=== PATIENT | female | born 1980 | race Caucasian/White ===

== ENCOUNTER 2019-09-03 09:24 | Emergency (ER) | payer OTHER ==
[~2019-09-03] VITALS: Ht 157.5 cm; Wt 88.0 kg
[2019-09-03] MEDS ORDERED: IV NORMAL SALINE 1,000ML 1,000 ML IV ONE ×2 (09:45)
[2019-09-03 09:47] VITALS: BP 154/105
--- NOTE | 2019-09-03 09:47 | PHYS DOC ---
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 She has had nausea and belching no vomiting today she was able to keep some liquids down but she just still feeling abdominal churning no sharp pain or localizing tenderness she tells me. She is worried about H. pylori or an ulcer or some other issue. She takes metformin for diabetes as well as occasional antianxiety medication as well no allergies to any medications Review of Systems Review of Systems Constitutional: Denies fever or chills [] Eyes: Denies change in visual acuity, redness, or eye pain [] HENT: Denies nasal congestion or sore throat [] Respiratory: Denies cough or shortness of breath [] Cardiovascular: No additional information not addressed in HPI [] GI: Denies abdominal pain, nausea, vomiting, bloody stools or diarrhea [] : Denies dysuria or hematuria [] Musculoskeletal: Denies back pain or joint pain [] Integument: Denies rash or skin lesions [] Neurologic: Denies headache, focal weakness or sensory changes [] Endocrine: Denies polyuria or polydipsia [] All other systems were reviewed and found to be within normal limits, except as documented in this note. Physical Exam Physical Exam Constitutional: Well developed, well nourished, no acute distress, non-toxic appearance. [] HENT: Normocephalic, atraumatic, bilateral external ears normal, oropharynx dry no oral exudates, nose normal. [] Eyes: PERRLA, EOMI, conjunctiva normal, no discharge. [] Neck: Normal range of motion, no tenderness, supple, no stridor. [] Cardiovascular: Tachycardic no murmur noted Lungs & Thorax: Bilateral breath sounds clear to auscultation [] Abdomen:, soft, no tenderness, no masses, no pulsatile masses. [] Skin: Warm, dry, no erythema, no rash. [] Back: No tenderness, no CVA tenderness. [] Extremities: No tenderness, no cyanosis, no clubbing, ROM intact, no edema. [] Neurologic: Alert and oriented X 3, normal motor function, normal sensory function, no focal deficits noted. [] Psychologic: Affect normal, judgement normal, mood normal. [] EKG EKG [] Radiology/Procedures Radiology/Procedures [] Course & Med Decision Making Course & Med Decision Making Pertinent Labs and Imaging studies reviewed. (See chart for details) []Noted mild to moderate tachycardia likely dehydration related stool culture was ordered check electrolytes hydration given likely a viral etiology or possibly foodborne but there is no diarrhea stool culture is not back yet Patient did have diarrhea in the emergency room that did take the form of the container stool culture has been ordered as well as a C. difficile PCR. Patient feels better after IV fluids and treatment in the ER as noted above heart rate is down to 76 patient is instructed to call me here in the emergency room tomorrow for the C. difficile PCR results. Otherwise stay hydrated take Zofran as needed keep up with electrolytes return as needed for fever or any other symptoms or concerns. Second abdominal exam reveals no tenderness at all so I talked with her specifically about this and I don't think that CT imaging is hopeful at this moment. She agrees. Dragon Disclaimer Dragon Disclaimer This electronic medical record was generated, in whole or in part, using a voice recognition dictation system. Departure Departure: Impression: Primary Impression: Diarrhea Disposition: 01 HOME, SELF-CARE Condition: STABLE Referrals: PRATIBHA ZUÑIGA DO (PCP) Scripts Ondansetron (ONDANSETRON ODT) 4 Mg Tab.rapdis 1 TAB PO PRN Q6-8HRS PRN for NAUSEA/VOMITING, #16 TAB Prov: MARY GRACE PARHAM MD 09/03/19 Dicyclomine Hcl (DICYCLOMINE HCL) 10 Mg Capsule 1 CAP PO PRN Q6HRS PRN for PAIN, #20 CAP Prov: MARY GRACE PARHAM MD 09/03/19 MARY GRACE PARHAM MD Sep 03, 2019 09:46
[2019-09-03] MEDS ORDERED: ONDANSETRON PF 4 MG/2 ML VIAL. IV ONE (10:00)
[2019-09-03] MEDS ORDERED: DICYCLOMINE HCL 20 MG TABLET PO ONE (10:15)
[2019-09-03 10:20] LABS: BASO # 0.1 x10^3/uL (0.0-0.2); BASO % 0 % (0-3); EOS # 0.1 x10^3/uL (0.0-0.7); EOS % 1 % (0-3); HEMATOCRIT 42.3 % (36.0-47.0); HEMOGLOBIN 13.8 g/dL (12.0-15.5); LYMPH # 2.4 x10^3/uL (1.0-4.8); LYMPH % 15 % (24-48); MEAN CORPUSCULAR HEMOGLOBIN 32 pg (25-35); MEAN CORPUSCULAR HGB CONC 33 g/dL (31-37); MEAN CORPUSCULAR VOLUME 97 fL (79-100); MONO % 6 % (0-9); NEUT # 12.6 x10^3uL (1.8-7.7); NEUT % 78 % (31-73); PLATELET COUNT 433 x10^3/uL (140-400); RED BLOOD COUNT 4.34 x10^6/uL (3.50-5.40); RED CELL DISTRIBUTION WIDTH 13.8 % (11.5-14.5); WHITE BLOOD COUNT 16.2 x10^3/uL (4.0-11.0)
[2019-09-03 10:32] LABS: ALBUMIN 4.3 g/dL (3.4-5.0); ALBUMIN/GLOBULIN RATIO 1.1 (1.0-1.7); CALCIUM 8.6 mg/dL (8.5-10.1); CREATININE 0.9 mg/dL (0.6-1.0); POTASSIUM 3.5 mmol/L (3.5-5.1); TOTAL BILIRUBIN 0.4 mg/dL (0.2-1.0); TOTAL PROTEIN 8.3 g/dL (6.4-8.2)
[2019-09-03] MEDS ORDERED: ONDA4TAB12 PO (10:48)
[2019-09-03] MEDS ORDERED: DICY10CA3 PO (10:48)
[2019-09-03 11:19] LABS: % BANDS 1 % (0-9); % EOS 1 % (0-5); % LYMPHS 20 % (24-48); % MONOS 6 % (0-10); % SEGS 72 % (35-66)
[2019-09-03 11:21] LABS: PLT ESTIMATE ADEQUATE (ADEQUATE)
== END 2019-09-03 11:35 | disposition home or self-care (01) ==
LOC: ER 09:24
DX: R19.7 Diarrhea, unspecified (principal)
CPT/HCPCS: 36415; 80053; 83690; 84702; 85007; 85025; 87045; 87493; 96361; 96374; 99284; J2405; J7030